=== PATIENT | female | born 1940 | race Caucasian/White ===

== ENCOUNTER 2023-05-11 13:15 | Emergency (ER) | payer OTHER ==
[~2023-05-11] VITALS: Ht 165.1 cm; Wt 79.4 kg
[2023-05-11] MEDS ORDERED: ACETAMINOPHEN ES 500 MG TABLET PO ONE (14:30)
[2023-05-11] MEDS ORDERED: ACETAMINOPHEN ES 500 MG TABLET ONE (14:41)
[2023-05-11 17:41] VITALS: BP 155/95; TEMP 98; O2SAT 97
== END 2023-05-11 17:42 | disposition home or self-care (01) ==
LOC: ER 13:22
DX: S92.411A Displaced fracture of proximal phalanx of right great toe, initial encounter for closed fracture (principal); Z60.2 Problems related to living alone; Z88.0 Allergy status to penicillin; W01.0XXA Fall on same level from slipping, tripping and stumbling without subsequent striking against object, initial encounter; Y93.89 Activity, other specified; Y92.89 Other specified places as the place of occurrence of the external cause; Y99.8 Other external cause status
CPT/HCPCS: 70450-TC; 70486-TC; 71100-TC; 73630-TC